=== PATIENT | male | born 1995 | race African-American/Black ===

== ENCOUNTER 2017-01-14 17:42 | Emergency (ER) | payer SELFPAY ==
[2017-01-14 17:52] VITALS: BP 142/90; PULSE 85; RESP 17; TEMP 98.8; O2SAT 95
[2017-01-14] MEDS ORDERED: DEXAMETHASONE 4 MG TAB PO ONE (18:16)
--- NOTE | 2017-01-14 18:17 | EDPHY ---
H & P Stated Complaint: st Time Seen by Provider: 01/14/17 18:09 HPI/ROS: CHIEF COMPLAINT: Sore throat HISTORY OF PRESENT ILLNESS: This patient is a healthy 21 y/o male complaining of sore throat onset yesterday around noon. He has noted a swollen left tonsil as well. This morning , he woke with increased throat pain, and possible white exudates on his tonsil. He has tried home remedies including salt water gargle and tea with no relief. He denies fever, runny nose, congestion, cough, or other associated symptoms. REVIEW OF SYSTEMS: A 10 point review of systems was performed and is negative with the exception of the elements mentioned in the history of present illness. - Personal History Current Tetanus/Diphtheria Vaccine: Yes - Medical/Surgical History PMH: 1. Asthma Hx Asthma: Yes Hx Chronic Respiratory Disease: No Hx Diabetes: No Hx Cardiac Disease: No Hx Renal Disease: No Hx Cirrhosis: No Hx Alcoholism: No Hx HIV/AIDS: No Hx Splenectomy or Spleen Trauma: No Other PMH: asthma/ r femur fx - Social History Smoking Status: Current every day smoker Additional Social History: Works as a cook. Current daily tobacco use. Lives in [place]. - Physical Exam Exam: General Appearance: Alert, nontoxic-appearing Eyes: Pupils equal and round, no conjunctival injection ENT, Mouth: Pharyngeal erythema. Mucous membranes moist Neck: Bilateral anterior and posterior lymphadenopathy Respiratory: Lungs are clear to auscultation Cardiovascular: Regular rate and rhythm Neurological: A&O, nonfocal, normal gait Skin: Warm and dry Psychiatric: Mood and affect normal Constitutional: Initial Vital Signs Temperature (C) 37.1 C 01/14/17 17:50 Heart Rate 85 01/14/17 17:50 Respiratory Rate 17 01/14/17 17:50 Blood Pressure 142/90 H 01/14/17 17:50 O2 Sat (%) 95 01/14/17 17:50 O2 Delivery Mode Room Air Allergies/Adverse Reactions: benzonatate [From Tessalon Perles] Allergy (Verified 01/14/17 17:50) quinine sulfate [From Qualaquin] Allergy (Verified 01/14/17 17:50) Home Medications: Medication Instructions Recorded NK [No Known Home Meds] 04/03/15 Medical Decision Making ED Course/Re-evaluation: 21 y/o male presents with two day history of sore throat. Exam reveals pharyngeal erythema as well as bilateral anterior and posterior lymphadenopathy. Plan for rapid strep swab and group A strep DNA test. Administered 6mg PO dexamethasone for symptom relief. 18:28 Rapid strep screen is negative. Plan to discharge home in good condition. Follow up and return precautions discussed. The patient requested a PCP referral and work note as well, which I have provided. The patient is comfortable with this plan. - Data Points Laboratory Results: 01/14/17 Unknown Group A Strep DNA NEGATIVE (NEGATIVE) Medications Given: Discontinued Medications Dexamethasone (Decadron) 6 mg PO EDNOW ONE Stop: 01/14/17 18:17 Last Admin: 01/14/17 18:27 Dose: 6 mg Departure - Departure Disposition: Home, Routine, Self-Care Clinical Impression: Acute pharyngitis Qualifiers: Pharyngitis/tonsillitis etiology: other specified organisms Qualified Code(s): J02.8 - Acute pharyngitis due to other specified organisms Condition: Good Instructions: Pharyngitis (ED), Viral Syndrome (ED) Additional Instructions: 1. Follow up with a primary care provider for continued evaluation. We have referred you to our primary care physician transcriptionist. 2. Take Tylenol or ibuprofen as directed below as needed for pain relief or if you develop fever. As we discussed, the steroid we administered in the emergency department should help to relieve your symptoms as well, but this may take some time to take effect. 3. Return to the emergency department for high fever, vomiting, diarrhea, difficulty breathing, or other worsening of condition. 4. Your rapid strep test was negative. We will call with results of the full culture if there are any changes. Adult Pain & Fever Control: We recommend Acetaminophen (Tylenol) and Ibuprofen (Motrin,Advil) for pain and fever control. When fever is high or pain severe, both drugs can be used at the same time, but at different intervals. Please note the time differences. Your dose is: Acetaminophen 650mg every 4 to 6 hours Ibuprofen 600mg every 6-8 hours with food Note: do not take Acetaminophen with Hydrocodone (Vicodin, Lortab) or Oxycodone (Percocet). These medications also contain Acetaminophen. No more than 3000mg of Acetaminophen should be taken in 24 hours (for an adult). Referrals: Rosario Li MD [Medical Doctor] - As per Instructions Stand Alone Forms: Work Excuse Report Scribed for: Karen Duong Report Scribed by: Pauline Ho Date of Report: 01/14/17 Time of Report: 18:17 Physician Review and Approval Statement: 01/14/17 18:17 Portions of this note were transcribed by a director global medical affairs. I personally performed a history, physical exam, medical decision making, and confirmed accuracy of information the transcribed note.
== END 2017-01-14 18:29 | disposition home or self-care (01) ==
DX: J02.9 Acute pharyngitis, unspecified (principal); J45.909 Unspecified asthma, uncomplicated; F17.200 Nicotine dependence, unspecified, uncomplicated

== ENCOUNTER 2017-09-08 02:47 | Emergency (ER) | payer SELFPAY ==
[2017-09-08] MEDS ORDERED: MIDAZOLAM 10 MG/2 ML VIAL ONE (03:49)
[2017-09-08] MEDS ORDERED: MIDAZOLAM 10 MG/2 ML VIAL NASAL ONE (03:49)
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
[2017-09-08 04:04] VITALS: BP 139/70
== END 2017-09-08 04:15 ==
LOC: EDUNIT#
DX: S00.31XA Abrasion of nose, initial encounter (principal); S40.812A Abrasion of left upper arm, initial encounter; S40.811A Abrasion of right upper arm, initial encounter; S20.91XA Abrasion of unspecified parts of thorax, initial encounter; F16.90 Hallucinogen use, unspecified, uncomplicated; R00.0 Tachycardia, unspecified; F10.121 Alcohol abuse with intoxication delirium; J45.909 Unspecified asthma, uncomplicated; F17.200 Nicotine dependence, unspecified, uncomplicated; Y04.8XXA Assault by other bodily force, initial encounter; Y99.8 Other external cause status; Y93.89 Activity, other specified
CPT/HCPCS: J2250

== ENCOUNTER 2017-10-22 04:06 | Emergency (ER) | payer MEDICAID ==
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
[2017-10-22] MEDS ORDERED: CEPHALEXIN 500 MG CAP PO ONE (04:16)
[2017-10-22] MEDS ORDERED: CEPHALEXIN 500MG PREPACK#4 BTL TAKEHOME ONE (04:16)
[2017-10-22 05:30] VITALS: BP 132/83
== END 2017-10-22 05:50 | disposition home or self-care (01) ==
DX: S61.411A Laceration without foreign body of right hand, initial encounter (principal); S41.111A Laceration without foreign body of right upper arm, initial encounter; J45.909 Unspecified asthma, uncomplicated; F17.200 Nicotine dependence, unspecified, uncomplicated; W01.0XXA Fall on same level from slipping, tripping and stumbling without subsequent striking against object, initial encounter; Y92.89 Other specified places as the place of occurrence of the external cause

== ENCOUNTER 2017-10-23 15:13 | Emergency (ER) | payer SELFPAY ==
[2017-10-23 15:39] VITALS: BP 154/71
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
== END 2017-10-23 16:20 | disposition home or self-care (01) ==
DX: S61.411D Laceration without foreign body of right hand, subsequent encounter (principal); F17.200 Nicotine dependence, unspecified, uncomplicated; S41.111D Laceration without foreign body of right upper arm, subsequent encounter; W26.8XXD Contact with other sharp object(s), not elsewhere classified, subsequent encounter

== ENCOUNTER 2018-04-16 01:53 | Inpatient (IN) | payer OTHER ==
[2018-04-16] MEDS ORDERED: NS 1,000 ML IV ONE ×2 (01:59→04:06)
--- NOTE | 2018-04-16 02:03 | EDPHY ---
H & P Time Seen by Provider: 04/16/18 02:00 HPI/ROS: HPI CHIEF COMPLAINT: Alcohol intoxication, ?fall off balcony HISTORY OF PRESENT ILLNESS: 22-year-old male presents emergency room by EMS, initially combative and agitated requiring police escort, presents to the emergency room after he drank large amount of alcohol tonight, also did cocaine , and possibly fell off a balcony. There is no witnesses. It is reported by EMS that he may have fallen 5-10 feet off a balcony. He arrives to the emergency room highly intoxicated with alcohol in a cervical collar. He is complaining of lower thoracic back pain. Denies chest pain or shortness of breath, denies abdominal pain. Moves all his extremities appropriately. He remains in a cervical collar. His head to toe trauma exam reveals mild tender palpation lower thoracic T-spine , otherwise negative, however Intoxicated. Past Medical History: Denies medical history Past Surgical History: Denies surgical history Social History: Alcohol this evening. Cocaine this evening. Family History: Noncontributory ROS REVIEW OF SYSTEMS: Limited due to alcohol intoxication. Exam Constitutional nontoxic, intoxicated, alcohol, triage nursing summary reviewed , vital signs reviewed, awake/alert. Eyes normal conjunctivae and sclera, EOMI, PERRLA. HENT head and neck in cervical collar rigid, intoxicated, I do not visualize any acute trauma externally moist mucus membranes, no epistaxis, neck supple/ no meningismus, no raccoon eyes. Respiratory clear to auscultation bilaterally, normal breath sounds, no respiratory distress, no wheezing. Cardiovascular rate normal, regular rhythm, no murmur, no edema, distal pulses normal. Gastrointestinal soft, non-tender, no rebound, no guarding, normal bowel sounds, no distension, no pulsatile mass. Genitourinary no CVA tenderness. Musculoskeletal. Back exam: Mild tender palpation mid thoracic midline, no step-offs or crepitus, no external signs of trauma on exam. , full range of motion, no calf swelling, no tenderness of extremities, no meningismus, good pulses, neurovascularly intact. Skin pink, warm, & dry, no rash, skin atraumatic. Neurologic slurring his speech, intoxicated, smells of alcohol, awake, alert and oriented x 3, AAOx3, moves all 4 extremities equally, motor intact, sensory intact, CN II-XII intact, truncal ataxia on exam. Differential Diagnosis: Includes but is not limited to in a particular order acute alcohol intoxication, cocaine abuse, fall from an elevated height, compression fracture, intracranial bleed, cervical spine injury Medical Decision Making: Patient to remain in a cervical collar, is highly intoxicated with alcohol EMS reports that he may have fallen body 10 ft complains of back pain. He arrives to emergency room limited history due to acute intoxication Plan for patient CT scan head without contrast and CT cervical spine without contrast for trauma CT thoracic spine without contrast for trauma. Reason for CT scans acute alcohol intoxication, fall. Complaining of midline back pain. Re-evaluation: Serum alcohol level 288. 2:[address] scan head without contrast negative for acute bleed CT cervical spine without contrast negative for acute fracture CT scan thoracic spine and lumbar spine without contrast for trauma this shows an L1 fracture it goes to the anterior and posterior column. Additionally T12 spinous process fracture The CT reports were called to me by Dr. Monroe. Plan for patient will consult Neurosurgery for his L1 fracture. 0329: Dr. Rosario with neurosurgery consulted. Will review his CT studies. Most likely plan for getting an MRI earlier this morning. At this time patient is too intoxicated agitated combative to obtain an MRI. Will need to wait till he is more sober. Patient remains in a cervical collar due to acute alcohol intoxication. And however CT cervical spine was negative for acute traumatic injury. Patient is moving all his extremities legs and arms appropriately. Discussed with Neurosurgery Dr. Rosario. He would like the patient admitted. Plan for MRI this morning. At this time 3:42 a.m. Patient is too intoxicated with alcohol and cocaine to get an MRI. This will need to be done this morning for further evaluation of his fracture Plan to admit to the trauma service. Admit for further evaluation of this back fracture Recommend bed rest. Will consult Trauma surgery for admission. 0350AM: Patient to be admitted to Trauma Surgery Dr. Sinclair consulted. Agrees to admit. Plan for MRI this moring when more sober Patient at this time to agitated/intoxicated with ETOH/Cocaine to get MRI. Patient bedrest. Admit to SDU. At time of admission, moves everything appropriately. However Intoxicated heavily with alcohol/cocaine. CT scan abdomen pelvis with IV contrast completed due the patient complaining of some abdominal pain. Additionally L1 fracture. CT scan abdomen pelvis with IV contrast does not show acute traumatic injury or inflammatory process seen. Called to me by Dr. Monroe. Critical Care: Total Critical Care Time Spent Managing this Patient: 85 Minutes. This time was spent Exclusively with this patient. This Care was exclusive of procedures. The Organ System/life at risk was lumbar spine fracture, alcohol intoxication, cocaine abuse, poly trauma This Patient was in Critical Condition because lumbar spine fracture. Source: Patient, EMS Constitutional: Initial Vital Signs Temperature (C) 36.6 C 04/16/18 02:07 Heart Rate 122 H 04/16/18 02:07 Respiratory Rate 18 04/16/18 02:07 Blood Pressure 125/98 H 04/16/18 02:07 O2 Sat (%) 93 04/16/18 02:07 O2 Delivery Mode Room Air Allergies/Adverse Reactions: No Known Allergies Allergy (Unverified 04/16/18 02:09) Home Medications: Medication Instructions Recorded NK [No Known Home Meds] 04/16/18 Medical Decision Making - Diagnostics Imaging Results: Imaging Impressions Thoracic Spine CT 04/16/18 01:59 Impression: 1. Transverse fracture through L1 through the anterior and posterior cortex and then through the pedicles and facets with mild diastasis posteriorly and moderate height loss of the anterior vertebral body. Fracture through the inferior aspect of the spinous process of T12. 2. Transitional anatomy of the spine with 13 rib-bearing vertebral bodies with hypoplastic ribs of this last rib-bearing vertebral body. This will be subsequently labeled as L1, as there are then following four lumbar-type vertebral bodies and partial lumbarization of S1. Results called and discussed with Dr. Beto Rodas on April 16, 2018 at 0330 hours. Final interpretation concurs with initial preliminary saxophone player radiologist impression. Lumbar Spine CT 04/16/18 02:50 Impression: 1. Transverse fracture through L1 through the anterior and posterior cortex and then through the pedicles and facets with mild diastasis posteriorly and moderate height loss of the anterior vertebral body. Fracture through the inferior aspect of the spinous process of T12. 2. Transitional anatomy of the spine with 13 rib-bearing vertebral bodies with hypoplastic ribs of this last rib-bearing vertebral body. This will be subsequently labeled as L1, as there are then following four lumbar-type vertebral bodies and partial lumbarization of S1. Results called and discussed with Dr. Beto Rodas on April 16, 2018 at 0330 hours. Final interpretation concurs with initial preliminary saxophone player radiologist impression. - Data Points Laboratory Results: Laboratory Results 04/16/18 02:11 04/16/18 02:11 Medications Given: Lactated Ringer's (Lr) 1,000 mls @ 125 mls/hr IV CONT PEGGY Stop: 10/13/18 04:59 Last Admin: 04/16/18 13:18 Dose: 1,000 mls Thiamine HCl 500 mg/ Sodium (Chloride) 105 mls @ 210 mls/hr IV DAILY PEGGY Stop: 04/18/18 09:29 Last Admin: 04/16/18 13:45 Dose: 105 mls Morphine Sulfate (Morphine) 1 - 2 mg IVP Q1HR PRN PRN Reason: Pain, Severe Unable to Take PO Stop: 04/26/18 04:59 Last Admin: 04/17/18 00:50 Dose: 2 mg Multivitamins (Tab-A-Paula) 1 each PO DAILY PEGGY Stop: 10/13/18 13:14 Last Admin: 04/16/18 13:44 Dose: 1 each Oxycodone/Acetaminophen (Percocet 5/325) 1 - 2 tab PO Q4HRS PRN PRN Reason: Pain, Severe Able to Take PO Stop: 04/26/18 13:15 Last Admin: 04/17/18 01:52 Dose: 1 tab Senna/Docusate Sodium (Senokot-S) 1 - 2 tab PO BID PEGGY PRN Reason: Protocol Stop: 10/13/18 20:59 Last Admin: 04/16/18 20:41 Dose: 1 tab Discontinued Medications Sodium Chloride (Ns) 1,000 mls @ 0 mls/hr IV ONCE ONE PRN Reason: Wide Open Stop: 04/16/18 02:00 Last Admin: 04/16/18 02:11 Dose: 1,000 mls Sodium Chloride (Ns) 1,000 mls @ 0 mls/hr IV ONCE ONE PRN Reason: Wide Open Stop: 04/16/18 04:07 Last Admin: 04/16/18 04:12 Dose: 1,000 mls Influenza Virus Vaccine Quadrival (Flulaval Quad [id number] (6mo+)) 0.5 ml IM .ONCE ONE Stop: 04/16/18 13:11 Last Admin: 04/16/18 13:19 Dose: 0.5 ml Departure - Departure Disposition: [facility] Inpatient Acute Clinical Impression: Lumbar back pain, Cocaine abuse Alcoholic intoxication Qualifiers: Complication of substance-induced condition: uncomplicated Qualified Code(s): F10.920 - Alcohol use, unspecified with intoxication, uncomplicated L1 vertebral fracture Qualifiers: Encounter type: initial encounter Fracture type: closed Fracture morphology: burst- unstable Qualified Code(s): S32.012A - Unstable burst fracture of first lumbar vertebra, initial encounter for closed fracture Fall Qualifiers: Encounter type: initial encounter Qualified Code(s): W19.XXXA - Unspecified fall, initial encounter Condition: Good
[2018-04-16 02:25] LABS: PLATELET COUNT 318 10^3/uL (150-400)
[2018-04-16] MEDS ORDERED: IOPAMIDOL (ISOVUE-300) 100 ML BTL ONE (04:22)
[2018-04-16] MEDS ORDERED: NALOXONE HCL 0.4 MG/ML INJ IVP PRN (04:55)
[2018-04-16] MEDS ORDERED: ONDANSETRON DISINTEGRATING 4 MG TAB PO PRN (05:00)
[2018-04-16] MEDS: LR 1,000 ML IV SCH ×2 (05:18→13:18)
--- NOTE | 2018-04-16 05:41 | PDGENHP ---
History and Physical - Chief Complaint Back pain - History of Present Illness This is a 22-year-old gentleman who was intoxicated with alcohol and cocaine and had an unwitnessed jump or fall from a 5-10 foot balcony. He presents with back pain accompanied by the police. He is moving all extremities appropriately. Although intoxicated he appropriately responds to commands. He is able to give a history he does admit that he blacked out at the time of the injury. He has had no incontinence of urine or stool. He has not vomited. His GCS is 14-15 History Information - Allergies/Home Medication List Allergies/Adverse Reactions: No Known Allergies Allergy (Unverified 04/16/18 02:09) Home Medications: NK [No Known Home Meds] 04/16/18 [Last Taken Unknown] I have personally reviewed and updated: family history, medical history, social history, surgical history - Past Medical History no pertinent PMH - Surgical History Additional surgical history: Right femur ORIF at 6 years old and 11 years old with implant at 11 years old - Family History Positive for: non-pertinent - Social History Smoking Status: Current every day smoker Alcohol Use: Heavy Drug Use: Cocaine Review of Systems Review of Systems: ROS: 10pt was reviewed & negative except for what was stated in HPI & below Muscolosketal: Reports: back pain Physical Exam Physical Exam: Alert and oriented to person place and time. Anicteric sclera, pupils 4 mm reactive. Extraocular motions intact No hemotympanum Nares clear Dentition intact. No oropharyngeal lesions Trachea midline 2+ carotid pulses Lungs clear bilaterally heart regular rate and rhythm Abdomen soft nontender nondistended no hepatosplenomegaly no masses No long bone abnormalities clavicles intact chest and pelvis stable to compression. Low mid back pain no ecchymosis tender centrally at approximately L1 consistent with x-ray findings Neurologically intact good muscle strength greenhouse grower strength bilateral upper extremities 5+ over 5+ muscle strength bilateral lower extremities symmetric sensation intact Skin normal turgor and tone Temp Pulse Resp BP Pulse Ox 36.6 C 116 H 18 119/59 L 97 04/16/18 02:07 04/16/18 04:55 04/16/18 04:55 04/16/18 04:55 04/16/18 04:55 Lab Data & Imaging Review 04/16/18 02:11 04/16/18 02:11 WBC 9.69 10^3/uL (3.80-9.50) H 04/16/18 02:11 RBC 5.72 10^6/uL (4.40-6.38) 04/16/18 02:11 Hgb 15.8 g/dL (13.7-17.5) 04/16/18 02:11 Hct 48.2 % (40.0-51.0) 04/16/18 02:11 MCV 84.3 fL (81.5-99.8) 04/16/18 02:11 MCH 27.6 pg (27.9-34.1) L 04/16/18 02:11 MCHC 32.8 g/dL (32.4-36.7) 04/16/18 02:11 RDW 13.3 % (11.5-15.2) 04/16/18 02:11 Plt Count 318 10^3/uL (150-400) 04/16/18 02:11 MPV 8.7 fL (8.7-11.7) 04/16/18 02:11 Neut % (Auto) 78.1 % (39.3-74.2) H 04/16/18 02:11 Lymph % (Auto) 16.4 % (15.0-45.0) 04/16/18 02:11 [place] % (Auto) 3.7 % (4.5-13.0) L 04/16/18 02:11 Eos % (Auto) 0.1 % (0.6-7.6) L 04/16/18 02:11 Baso % (Auto) 0.5 % (0.3-1.7) 04/16/18 02:11 Nucleat RBC Rel Count 0.0 % (0.0-0.2) 04/16/18 02:11 Absolute Neuts (auto) 7.56 10^3/uL (1.70-6.50) H 04/16/18 02:11 Absolute Lymphs (auto) 1.59 10^3/uL (1.00-3.00) 04/16/18 02:11 Absolute Monos (auto) 0.36 10^3/uL (0.30-0.80) 04/16/18 02:11 Absolute Eos (auto) 0.01 10^3/uL (0.03-0.40) L 04/16/18 02:11 Absolute Basos (auto) 0.05 10^3/uL (0.02-0.10) 04/16/18 02:11 Absolute Nucleated RBC 0.00 10^3/uL (0-0.01) 04/16/18 02:11 Immature Gran % 1.2 % (0.0-1.1) H 04/16/18 02:11 Immature Gran # 0.12 10^3/uL (0.00-0.10) H 04/16/18 02:11 Sodium 146 mEq/L (135-145) H 04/16/18 02:11 Potassium 4.4 mEq/L (3.5-5.2) 04/16/18 02:11 Chloride 111 mEq/L (97-110) H 04/16/18 02:11 Carbon Dioxide 23 mEq/l (22-31) 04/16/18 02:11 Anion Gap 12 mEq/L (6-14) 04/16/18 02:11 BUN 11 mg/dL (7-23) 04/16/18 02:11 Creatinine 0.9 mg/dL (0.7-1.3) 04/16/18 02:11 Estimated GFR > 60 04/16/18 02:11 Glucose 123 mg/dL (70-100) H 04/16/18 02:11 Calcium 9.7 mg/dL (8.5-10.4) 04/16/18 02:11 Total Bilirubin 0.6 mg/dL (0.1-1.4) 04/16/18 02:11 Conjugated Bilirubin 0.3 mg/dL (0.0-0.5) 04/16/18 02:11 Unconjugated Bilirubin 0.3 mg/dL (0.0-1.1) 04/16/18 02:11 AST 29 IU/L (17-59) 04/16/18 02:11 ALT 25 IU/L (21-72) 04/16/18 02:11 Alkaline Phosphatase 76 IU/L (38-126) 04/16/18 02:11 Total Protein 8.6 g/dL (6.3-8.2) H 04/16/18 02:11 Albumin 5.3 g/dL (3.5-5.0) H 04/16/18 02:11 Lipase 57 IU/L (23-300) 04/16/18 02:11 Urine Opiates Screen NEGATIVE (NEGATIVE) 04/16/18 03:25 Urine Barbiturates NEGATIVE (NEGATIVE) 04/16/18 03:25 Ur Phencyclidine Scrn NEGATIVE (NEGATIVE) 04/16/18 03:25 Ur Amphetamine Screen NEGATIVE (NEGATIVE) 04/16/18 03:25 U Benzodiazepines Scrn NEGATIVE (NEGATIVE) 04/16/18 03:25 Urine Cocaine Screen NON-NEGATIVE (NEGATIVE) H 04/16/18 03:25 U Marijuana (THC) Screen NEGATIVE (NEGATIVE) 04/16/18 03:25 Ethyl Alcohol 288 mg/dL (0-10) H 04/16/18 02:11 Imaging Review: Personally reviewed head CT, C-spine, thoracic spine, lumbar spine reconstructed views as well as abdomen and pelvis CT scan. Significant finding L1 3 column fractures nondisplaced no cord compression on this view. Twelfth thoracic transverse process fracture White reads to Dr. Rodas are consistent with my findings Assessment & Plan Assessment: Alcoholic intoxication (Acute) Cocaine abuse (Acute) Fall (Acute) L1 vertebral fracture (Acute) Lumbar back pain (Acute) Plan: The patient will be admitted as a trauma consultation/admission Neurosurgery has been called and the patient will need an MRI to appropriately evaluate his back. This will be performed with the patient is less intoxicated. No focal neurologic deficits are noted. Cocaine and alcohol use will be addressed from a social standpoint. PT OT to be held until after definitive bracing or surgical repair of his L1 fracture. Back precautions until then. DVT prophylaxis with SCDs until after possible surgery. NPO. Neurologic checks q.4 hours. IV fluids 125 cc an hour Morphine intermittently for pain if needed
--- NOTE | 2018-04-16 09:37 | GCON ---
CONSULTATION/HISTORY AND PHYSICAL DATE OF CONSULTATION: 04/16/2018 Patient is seen in room 355 by neurosurgical service at 0715 on 04/16/2017. CHIEF COMPLAINT: 1. Alcohol intoxication. 2. Fall off a balcony. HISTORY OF PRESENT ILLNESS: The patient is a 22-year-old otherwise healthy male who presented to the emergency department via EMS. Initially, he was combative and agitated, requiring a police escort. He presented to the emergency department after a reported large intake of alcohol, also intake of co rina. There was a possibility that he fell off a balcony. There were no witnesses to this. Per EM S, he possibly fell approximately 5-10 feet off a balcony. He came into the emergency department hig hly intoxicated in a cervical collar. He was complaining of lower back pain as his main complaint. Currently, he describes that as well. He denies currently any neck pain. No headache. No visual ch anges. No shortness of breath. No chest pain. No abdominal complaints. He moves all his extremiti es appropriately to his arms and legs. He removed his cervical collar prior to my arrival. His main complaint at this time appears to be lower back pain without any radicular symptoms. He denies any numbness, tingling, or weakness to the lower extremities. No fevers or chills. The patient also denies any saddle numbness. No groin numbness. No change in voiding. He is able t o pee appropriately. PAST MEDICAL HISTORY: None. PAST SURGICAL HISTORY: ORIF of femur x2. MEDICATIONS: None. ALLERGIES: No known drug allergies. SOCIAL HISTORY: Patient is not . He has 1 child. He does smoke. He does use alcohol. He h as recent cocaine intake. 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 IMMUNIZATIONS: Reported up to date. TRAVEL: No recent travel. REVIEW OF SYSTEMS: Complete 10-point review of systems was completed and negative, otherwise noted a katia. PHYSICAL EXAM: GENERAL: This is an awake, alert, oriented male in no acute distress. VITAL SIGNS: Most recent vital signs, blood pressure 147/62, MAP of 90, heart rate 108, respiratory rate 18, 92% on room air, temperature 36.8. HEENT: Head is normocephalic, atraumatic. Pupils are equal, round, reactive to light. EOMs intact. Full visual holder by confrontation. Ears are patent. Nose is pat ent. NECK: Soft and supple. No midline tenderness. Full range of motion in flexion, extension, lat eral bending, and rotation. The patient removed collar prior to my arrival. RESPIRATORY/CARDIAC: D eferred. ABDOMEN: Soft, nontender. No peritoneal signs. and RECTAL: Deferred. NEURO: Patient is awake, alert, oriented to name, place, location, date, time, and situation. Memory is intact to immediate, past, and current events. Speech: No aphasia, dysarthria, dysphonia. Cranial nerves 2-1 2 grossly intact. Motor: Patient has 5/5 strength in all muscle groups of the bilateral upper and l ower extremities to include deltoids, biceps, triceps, brachioradialis, wrist flexion/extensors, alignment specialist intrinsic fingers, iliopsoas, quadriceps, hamstring, plantar flexion, dorsiflexion, EHL testing. Se nsation is grossly intact to light touch throughout all dermatome distributions, upper and lower extr emities, negative straight leg raise. Negative ILAN test, reflexes of biceps, triceps, brachioradia lis, knee jerk and ankle jerk 2+/4. Toes are downgoing bilaterally. Hook's negative. Babinski n egative. No evidence of clonus. SPINE: Patient does have pain on palpation to the lower thoracic, upper lumbar spine that hurts with mild fist percussion. Otherwise, no cervical or upper thoracic pa in. MEDICAL DECISION-MAKING/DIAGNOSTIC STUDIES: Laboratory tests obtained 04/16/2018, show a white count of 9.69, with H and H of 15.8 and 48.2, with a platelet count of 318. Chemistry on 04/16/2018, sodi um 146, potassium 4.4, chloride 111, CO2 23, BUN 11, creatinine 0.9, and a glucose of 123. Urine eitan g screen was positive for cocaine, and alcohol level was 288. CT scan of the head without contrast was negative for acute bleed. CT scan of the cervical spine wit hout contrast was negative for acute fracture. The patient had a CT scan of the thoracic and lumbar spine without contrast for trauma, which shows an L1 fracture consistent with a Chance type fracture that goes to the anterior and posterior columns. There is also a T12 spinous process fracture. IMPRESSION: 1. Alcohol intoxication. 2. Cocaine ingestion. 3. Fall reported 5-10 feet from a balcony. 4. T12 spinous process fracture. 5. Chance fracture at L1, likely require surgical intervention. PLAN/DISCUSSION: The patient is a 22-year-old male who is otherwise healthy. He had an ORIF of his femur, but really has no other significant medical history. He was intoxicated and did use some coca ine last night, fell off a balcony of approximately 5-10 feet. Currently, patient denies any headach e or neck pain. The patient removed his collar and refused to wear his collar prior to my arrival. The patient was seen both by myself and Dr. Rosario, as noted above. The patient has an unstable fract ure of L1. We have a pending MRI of the lumbar spine today. Review the MRI and likely will need danny gical intervention and stabilization for this. The patient is still intoxicated and will need to wea r this off so that we can properly review the images that need to be obtained with him and consent hi m for surgery likely tomorrow. All questions and concerns were answered. Will go ahead and let him eat today, but will likely need surgery tomorrow or the next day depending on what the MRI reveals. /[id number]/MODL
--- NOTE | 2018-04-16 09:45 | PDMN ---
Medical Necessity Medical necessity: MCG: GRG Musculoskeletal disease wedge compression fx of 1st lumbar vertebra, initial encounter for closed fx., 2 days: pt with jump/ fall from 5-10 feet with new back pain. pt intoxicated, pt will be NPO with neuro consult pend. MRI pend. - anticipate > 2 MN ongoing med nec care- further monitoring eval and tx needed.
--- NOTE | 2018-04-16 10:29 | ASMTCMCOM ---
CM Note CM Note Notes: Pt has unstable L1 fx after unwitnessed fall (off balcony?), pt had alcohol and cocaine. Neurosurgery consulting, MRI pending and pt likely needs surgery possibly tomorrow. OT/PT/MANAGER FAMILY/inpatient rehab ordered. CM to discuss drug/alcohol resources when appropriate. Pt listed currently as self pay. CM to follow for d/c needs. Date Signed: 04/16/2018 10:29 AM Electronically Signed By:MOOSE Worley
[2018-04-16] MEDS ORDERED: LORazepam 2 MG/ML INJ IVP PRN (13:14)
[2018-04-16] MEDS ORDERED: FLUMAZENIL 0.5 MG/5 ML MDV IVP PRN (13:14)
[2018-04-16] MEDS: MULTIVITAMINS 1 EACH TAB PO SCH (13:44)
[2018-04-16] MEDS: OXYCODONE/APAP 5/325 TAB PO PRN ×3 (13:44→21:25)
[2018-04-16] MEDS: THIAMINE HCL 500 MG in NS 100 ML IV SCH (13:45)
--- NOTE | 2018-04-16 16:06 | SOAPPROG ---
SOAP Progress Note Assessment/Plan: Assessment: MRI SHOWS UNSTABLE L1 FX WITH NO PROTRUSION INTO CANAL BUT SMALL EPIDURAL BLOOD Plan:PER NS 04/16/18 16:04 Objective: Vital Signs Temp Pulse Resp BP Pulse Ox 36.9 C 89 16 123/59 H 93 04/16/18 15:21 04/16/18 15:21 04/16/18 15:21 04/16/18 15:21 04/16/18 15:21 04/15/18 04/16/18 04/17/18 05:59 05:59 05:59 Intake Total 2100 Output Total 2500 Balance -400 ICD10 Worksheet Patient Problems: Problems Problem Status Onset Alcoholic intoxication Acute Cocaine abuse Acute Fall Acute L1 vertebral fracture Acute Lumbar back pain Acute
--- NOTE | 2018-04-16 19:51 | TRAUMAPN ---
Trauma Progress Note - Problem/Surgery Performed (1) Closed T12 fracture Assessment/Plan: T12 spinous process fracture with disruption post longitudinal ligament Qualifiers: Encounter type: initial encounter (2) Fall Assessment/Plan: mechanism of injury. patient was intoxicated/is now sober and interacting appropriately Qualifiers: Encounter type: initial encounter Qualified Code(s): W19.XXXA - Unspecified fall, initial encounter (3) L1 vertebral fracture Assessment/Plan: MRI confirms unstable fracture L1 extending into both pedicles/small epidural hematoma no associated cord compression or injury management per Dr. Rosario/continue bedrest with spine precautions will hold VTE prophylaxis for now and continue SCD Qualifiers: Encounter type: initial encounter Fracture type: closed Fracture morphology: burst- unstable Qualified Code(s): S32.012A - Unstable burst fracture of first lumbar vertebra, initial encounter for closed fracture Assessment/Plan: hemodynamically stable with other injuries on tertiary survey/cervical spine cleared clinically Plan: operative stabilization per Neurosurgery/continue SCD/start VTE prophylaxis as soon as possible after surgery Objective: Vital Signs Temp Pulse Resp BP Pulse Ox 36.9 C 89 16 123/59 H 93 04/16/18 15:21 04/16/18 15:21 04/16/18 15:21 04/16/18 15:21 04/16/18 15:21 04/15/18 04/16/18 04/17/18 05:59 05:59 05:59 Intake Total 3450 Output Total 3050 Balance 400 - C-Spine Clearance Cervical Spine Cleared: Yes Provider who Cleared Cervical Spine: [facility] Time Cervical Spine was Cleared: 19:53 Physical Exam - Physical Exam General Appearance: WD/WN, alert, no apparent distress EENT: PERRL/EOMI Neck: non-tender, full range of motion, supple Respiratory: lungs clear, normal breath sounds, pain on movement Cardiac/Chest: regular rate, rhythm Peripheral Pulses: 4+: carotid (R), carotid (L), femoral (R), femoral (L), dorsalis-pedis (R), dorsalis-pedis (L) Abdomen: normal bowel sounds, non-tender, soft Male Genitalia: deferred Rectal: deferred Skin: warm/dry Lymphatic: no adenopathy Extremities: normal range of motion, non-tender Neuro/Psych: no motor/sensory deficits, alert, normal mood/affect, oriented x 3 , other (gait testing not performed) Time Spent w/Patient (minutes): 30
[2018-04-16] MEDS ORDERED: MAGNESIUM HYDROXIDE 30 ML UDCUP PO PRN (19:58)
[2018-04-16] MEDS ORDERED: BISACODYL 10 MG SUPP PR PRN (19:58)
[2018-04-16] MEDS ORDERED: LACTULOSE 20 GM/30 ML UDCUP PO PRN (19:58)
[2018-04-16] MEDS: SENNOSIDES/DOCUSATE SODIUM TAB PO SCH (20:41)
[2018-04-17] MEDS: OXYCODONE/APAP 5/325 TAB PO PRN ×4 (01:52→21:59)
[2018-04-17] MEDS: METHOCARBAMOL 750 MG TAB PO SCH ×4 (03:26→21:59)
--- NOTE | 2018-04-17 06:22 | NEUSURGPN ---
Assessment/Plan: Assessment: 22 yo male that was admitted after fall with hx of drug and alcohol use. Pt has a L1 chance type fracture with T12 SP fracture Plan: -L1 fracture/T12 SP fracture: MRI of the L spine shows unstable L1 fracture with disruption of the posterior longitudinal ligaments-plan for surgery and stabilization with Dr Rosario on Wednesday -pt is neuro stable -PT/OT on hold -bedrest at this time -will call OR for time to do surgery tomorrow -warning signs reviewed -call with any questions or concerns -NPO after midnight -order in for surgery Subjective: Awake and alert. NAD. Eating/drinking and voiding. No f/c/n/v/d. No mcnamara/neck/ chest/abd or gu complaints. Objective: AAO x 3, PERRLA/EOMI no droop CN 2-12 grossly intact +lt touch 5/5 BUE/BLE = no numbness or tingling Neuro Check Frequency: per routine Urinary Catheter in Place: No - Physician Discussed Patient with : [facility] Physical Exam - Vitals, I&O, Labs I and O 04/16/18 04/17/18 04/18/18 05:59 05:59 05:59 Intake Total 3950 Output Total 3050 Balance 900 Weight 72.575 kg Intake: Oral (ml) 500 IV Infused (ml) 3450 Lr 1,000 ml @ 125 mls/hr 1250 IV CONT PEGGY Rx#: [id number] Thiamine HCl 500 mg In Ns 100 100 ml @ 210 mls/hr IV DAILY PEGGY Rx#:[id number] Output: Urine (ml) 3050 Urinal 1450 Other: Intake Quantity Yes Sufficient Number of Voids 2 Urinal 1 Vital Signs Temp Pulse Resp BP Pulse Ox 37.0 C 68 16 137/81 H 96 04/17/18 04:30 04/17/18 04:30 04/17/18 04:30 04/17/18 04:30 04/17/18 04:30 ICD10 Worksheet Patient Problems: Problems Problem Status Onset Alcoholic intoxication Acute Closed T12 fracture Acute Cocaine abuse Acute Fall Acute L1 vertebral fracture Acute Lumbar back pain Acute
[2018-04-17] MEDS: SENNOSIDES/DOCUSATE SODIUM TAB PO SCH ×2 (08:23→21:59)
[2018-04-17] MEDS: MULTIVITAMINS 1 EACH TAB PO SCH (08:23)
[2018-04-17] MEDS: THIAMINE HCL 500 MG in NS 100 ML IV SCH (08:24)
[2018-04-17] MEDS ORDERED: NALOXONE HCL 0.4 MG/ML INJ IVP PRN (08:34)
[2018-04-17 08:38] LABS: INR 1.03 (0.83-1.16); PROTIME(PATIENT) 13.7 SEC (12.0-15.0)
[2018-04-17] MEDS: HYDROmorphONE/DILAUDID 6 MG/30 ML PCA IV PRN (09:15)
[2018-04-17] MEDS: LR 1,000 ML IV SCH (09:16)
--- NOTE | 2018-04-17 09:38 | SOAPPROG ---
SOAP Progress Note Assessment/Plan: Assessment: MRI SHOWS UNSTABLE L1 FX WITH NO PROTRUSION INTO CANAL BUT SMALL EPIDURAL BLOOD Plan:PER NS 04/16/18 16:04 04/17/18 09:36 72-YEAR-OLD MALE WITH UNSTABLE L1 COMPRESSION FRACTURE PENDING SURGICAL REPAIR IN THE A.M. PRESENTLY COMFORTABLE EXCEPT FOR BACK SPASMS AND PAIN HEENT NONICTERIC/CHEST CLEAR AND SYMMETRIC AND NONTENDER/COR REGULAR RHYTHM/ ABDOMEN SOFT AND NONTENDER WITHOUT MASSES AND WITH POSITIVE BOWEL SOUNDS EXTREMITIES FULL RANGE OF MOTION FULL PULSES NEURO EXAM SYMMETRIC STRENGTH AND MOTOR FUNCTION AND CRANIAL NERVES INTACT IMPRESSION: UNSTABLE SPINE FRACTURE/NO OTHER MAJOR FINDINGS/CONTINUE SPINAL PRECAUTIONS UNTIL SURGERY Objective: Vital Signs Temp Pulse Resp BP Pulse Ox 36.9 C 92 16 143/65 H 93 04/17/18 08:00 04/17/18 08:00 04/17/18 08:00 04/17/18 08:00 04/17/18 08:00 04/16/18 04/17/18 04/18/18 05:59 05:59 05:59 Intake Total 4190 Output Total 3050 Balance 1140 PT 13.7 SEC (12.0-15.0) 04/17/18 07:48 INR 1.03 (0.83-1.16) 04/17/18 07:48 ICD10 Worksheet Patient Problems: Problems Problem Status Onset Alcoholic intoxication Acute Closed T12 fracture Acute Cocaine abuse Acute Fall Acute L1 vertebral fracture Acute Lumbar back pain Acute
[2018-04-18] MEDS: OXYCODONE/APAP 5/325 TAB PO PRN ×3 (03:16→17:35)
[2018-04-18] MEDS ORDERED: ceFAZolin 2 GM/DEXTROSE 100 ML IV ONE (08:00)
[2018-04-18] MEDS: SENNOSIDES/DOCUSATE SODIUM TAB PO SCH ×2 (08:17→21:32)
[2018-04-18] MEDS: MULTIVITAMINS 1 EACH TAB PO SCH (08:20)
--- NOTE | 2018-04-18 08:50 | PDHPUP ---
History & Physical Update H&P update statement: This history and physical update is based on an assessment of the patient which was completed after admission or registration (within 24 hours), but prior to the surgery/procedure. H&P update: H&P reviewed & patient examined, no change in patient's condition since H&P completed H&P changes: Discussed risks, benfits and alternatives to T12-L2 percutaneous PSF for L1 fracture stabilization.
--- NOTE | 2018-04-18 09:16 | SOAPPROG ---
SOAP Progress Note Assessment/Plan: Assessment/Plan: 22 Y M EtOH, cocaine, presumed fall from 5-10 foot balcony. T12 spinous process fx, L1 Chance fx. To OR today c Dr. Rosario for L1 fracture. NPO. Chemical VTE ppx held. C spine cleared. Pain controlled. No new complaints. Seen with Dr. Moffett. Dispo: pending. S: pain controlled. no new complaints. O: alert, nad, flat in bed ncat ctab rrr abd soft, nt, +BS ext wwp, sensation intact. no edema. 04/18/18 09:15 Objective: Vital Signs Temp Pulse Resp BP Pulse Ox 36.8 C 82 14 126/81 H 91 L 04/18/18 08:00 04/18/18 08:00 04/18/18 08:00 04/18/18 08:00 04/18/18 08:00 04/17/18 04/18/18 04/19/18 05:59 05:59 05:59 Intake Total 4190 1600 Output Total 3050 Balance 1140 1600 PT 13.7 SEC (12.0-15.0) 04/17/18 07:48 INR 1.03 (0.83-1.16) 04/17/18 07:48 ICD10 Worksheet Patient Problems: Problems Problem Status Onset Alcoholic intoxication Acute Closed T12 fracture Acute Cocaine abuse Acute Fall Acute L1 vertebral fracture Acute Lumbar back pain Acute
[2018-04-18] MEDS: METHOCARBAMOL 750 MG TAB PO SCH ×3 (10:15→21:33)
[2018-04-18] MEDS: THIAMINE HCL 500 MG in NS 100 ML IV SCH (10:15)
--- NOTE | 2018-04-18 11:56 | ASMTCMCOM ---
CM Note CM Note Notes: Patient in OR today for neurosurgical repair of his L1 fracture. Mother has been at bedside. Per financial counseling update, he has [employer] insurance. For any behavioral health/susbstance abuse treatment options, we will need to see what [employer] covers. PT/OT/IPR consults pending, will eval post-operatively. CM will follow. Current CM Discharge plan: TBD Date Signed: 04/18/2018 11:55 AM Electronically Signed By:Lara Oden RN
[2018-04-18] MEDS ORDERED: CHLORHEXIDINE GLUC HIBICLENS 118 ML BTL TP ONE (12:18)
[2018-04-18] MEDS ORDERED: THROMBIN (BOVINE) 5,000 UNIT VIAL TP ONE ×2 (12:19)
[2018-04-18] MEDS ORDERED: BUPIVACAINE/EPI 0.25% 30 ML SDV ONE ×4 (12:19)
[2018-04-18] MEDS ORDERED: BACITRACIN 50,000 UNITS/10 ML SYR IRR ONE (12:19)
[2018-04-18] MEDS ORDERED: LR 1,000 ML IV ONE (12:54)
[2018-04-18] MEDS ORDERED: CEFAZOLIN 2 GM/DEXTROSE/100 ML BAG IV ONE (13:06)
[2018-04-18] MEDS ORDERED: MIDAZOLAM 2 MG/2 ML VIAL IVP ONE (13:13)
--- NOTE | 2018-04-18 13:13 | PDANEPAE ---
ANE History of Present Illness here for min invasive spinal fusion ANE Past Medical History - Cardiovascular History Hx Hypertension: No Hx Arrhythmias: No Hx Chest Pain: No Hx Coronary Artery / Peripheral Vascular Disease: No Hx CHF / Valvular Disease: No Hx Palpitations: No - Pulmonary History Hx COPD: No Hx Asthma/Reactive Airway Disease: No Hx Recent Upper Respiratory Infection: No Hx Oxygen in Use at Home: No Hx Sleep Apnea: No Sleep Apnea Screening Result - Last Documented: Negative - Neurologic History Hx Cerebrovascular Accident: No Hx Seizures: No Hx Dementia: No - Endocrine History Hx Diabetes: No - Renal History Hx Renal Disorders: No - Liver History Hx Hepatic Disorders: No - Chronic Pain History Chronic Pain: Yes ANE Review of Systems Review of systems is: negative Review of Systems: - Exercise capacity Exercise capacity: >=4 METS ANE Patient History - Allergies Allergies/Adverse Reactions: No Known Allergies Allergy (Unverified 04/16/18 02:09) - Home Medications Home medications: home medication list seen and reviewed Home Medications: NK [No Known Home Meds] 04/16/18 [Last Taken Unknown] - NPO status NPO Status: no food or drink >8 hours NPO Since - Liquids (Date): 04/18/18 NPO Since - Liquids (Time): 00:00 NPO Since - Solids (Date): 04/18/18 NPO Since - Solids (Time): 00:00 - Anes Hx Anes Hx: no prior problems - Smoking Hx Smoking Status: Current every day smoker - Alcohol Use Alcohol Use: Heavy ANE Labs/Vital Signs - Labs Result Diagrams: 04/16/18 02:11 04/16/18 02:11 - Vital Signs Vital Signs: reviewed preoperatively; see RN documention for details Blood Pressure: 137/73 Heart Rate: 73 Respiratory Rate: 16 O2 Sat (%): 93 Height: 180.34 cm Weight: 72.575 kg ANE Physical Exam - Airway Neck exam: FROM Mallampati Score: Class 1 - Pulmonary Pulmonary: no respiratory distress - Cardiovascular Cardiovascular: regular rate and rhythym - ASA Status ASA Status: II ANE Anesthesia Plan Anesthesia Plan: general endotracheal anesthesia
[2018-04-18] MEDS ORDERED: ONDANSETRON 4 MG/2 ML VIAL IVP PRN (13:17)
[2018-04-18] MEDS ORDERED: HYDROCODONE/APAP 5/325 TAB PO PRN (13:17)
[2018-04-18] MEDS ORDERED: NS 500 ML IV PRN (13:17)
[2018-04-18] MEDS ORDERED: oxyCODONE IR 5 MG TAB PO PRN (13:17)
[2018-04-18] MEDS ORDERED: NALOXONE HCL 0.4 MG/ML INJ IVP PRN (13:17)
[2018-04-18] MEDS ORDERED: LR 500 ML IV PRN (13:17)
[2018-04-18] MEDS ORDERED: ALBUTEROL 3 ML DEYVIAL IH PRN (13:17)
[2018-04-18] MEDS ORDERED: DEXAMETHASONE 4 MG/ML VIAL IVP PRN (13:17)
[2018-04-18] MEDS ORDERED: ACETAMINOPHEN 500 MG TAB PO PRN (13:17)
[2018-04-18] MEDS ORDERED: PROPOFOL/EMULSION 500 MG/50 ML BOTTLE IV ONE ×2 (13:23→14:35)
[2018-04-18] MEDS ORDERED: ROCURONIUM 50 MG/5 ML VIAL ONE (13:24)
[2018-04-18] MEDS ORDERED: fentaNYL 100 MCG/2 ML INJ ONE ×3 (13:30→15:53)
[2018-04-18] MEDS ORDERED: PROPOFOL 200 MG/20 ML VIAL ONE (13:52)
[2018-04-18] MEDS ORDERED: METHOCARBAMOL 1,000 MG in NS 50 ML IV ONE (15:55)
[2018-04-18] MEDS ORDERED: KETOROLAC 30 MG/1 ML SDV IVP PRN (15:55)
[2018-04-18] MEDS ORDERED: KETOROLAC 30 MG/1 ML SDV ONE (15:57)
[2018-04-18] MEDS: fentaNYL 100 MCG/2 ML INJ IVP PRN ×2 (15:58→16:08)
[2018-04-18] MEDS: HYDROmorphONE/DILAUDID 2 MG/ML INJ IVP PRN ×4 (16:15→16:58)
[2018-04-18] MEDS ORDERED: HYDROmorphONE/DILAUDID 2 MG/ML INJ ONE (16:15)
--- NOTE | 2018-04-18 16:34 | POSTOPPROG ---
Post Op Note Date of Operation: 04/18/18 Surgeon: Perez Rosario Visiting Teacher: Lashon BROWN Anesthesia: GET(General Endotracheal) Pre-op Diagnosis: L1 chance fracture Post-op Diagnosis: same Procedure: T12-L1 Percutaneous Fusion Inf/Abcess present in the surg proc area at time of surgery?: No Depth: Organ Space SOAP Progress Note Assessment/Plan: Assessment: Plan: 04/18/18 16:26 S: Patient in PACU. Stable with expected incisional pain. O: Awake, still becoming more alert,uncomfortable and in pain PERRL, EOMI WING X4 Following commands BLE 5/5= Sensation intact to lt touch Incisions c/d/i-dressed -steri strips A: 22 yo male sp T12-L2 perc screw placement for stabilization of L1 chance fracture P: -Admit to med/surg -Postop x-rays -Brace when up and out of bed- will put in order to have RN order brace. Ok for patient to get out of bed prior to brace arriving -Optimize pain management- Ok to have 4 doses of toradol to help with postop pain control -PT/OT -Patient seen by Dr. Rosario in PACU -Call with any changes Objective: Vital Signs Temp Pulse Resp BP Pulse Ox 36.8 C 73 15 150/99 H 99 04/18/18 11:59 04/18/18 13:17 04/18/18 16:07 04/18/18 16:07 04/18/18 16:07 04/17/18 04/18/18 04/19/18 05:59 05:59 05:59 Intake Total 4190 1600 Output Total 3050 Balance 1140 1600 PT 13.7 SEC (12.0-15.0) 04/17/18 07:48 INR 1.03 (0.83-1.16) 04/17/18 07:48
[2018-04-18] MEDS ORDERED: diphenhydrAMINE 25 MG CAP PO PRN (16:38)
[2018-04-18] MEDS: POLYETHYLENE GLYCOL 3350 17 GM PKT PO PRN (17:32)
[2018-04-18] MEDS: HYDROmorphONE/DILAUDID 6 MG/30 ML PCA IV PRN (18:04)
[2018-04-18] MEDS: oxyCODONE IR 5 MG TAB PO PRN (18:37)
--- NOTE | 2018-04-18 20:30 | GOP ---
DATE OF OPERATION: 04/18/2018 SURGEON: Perez Rosario MD NEUROSURGEON: Preez Rosario MD. SCREENING NURSE: CARTER Swenson. ANESTHESIA: General endotracheal. PREOPERATIVE DIAGNOSIS: L1 bony Chance fracture with bilateral facet fractures. POSTOPERATIVE DIAGNOSIS: L1 bony Chance fracture with bilateral facet fractures. PROCEDURE PERFORMED: 1. Open reduction, internal fixation of L1 fracture. 2. Placement of percutaneous pedicle screw fixation, T12 and L2. 3. Posterior spinal instrumentation T12 to L2. 4. Use of O-arm/Stealth stereotactic navigation for screw placement. 5. Intraoperative neurophysiologic monitoring, including somatosensory evoked potentials, motor evok ed potentials, electromyography. FINDINGS: Successful fixation T12 to L2. SPECIMENS: None. ESTIMATED BLOOD LOSS: 25 cc. INDICATIONS: The patient is a 22-year-old man who fell off a balcony 2 days ago. He presented with low back pain but was ambulatory at the time. He was found to have a bony flexion distraction fractu re consistent with a bony Chance fracture at L1. He had some splaying of the pedicles and facet join ts posteriorly. Therefore, we elected to treat him with internal fixation with the hopes of removing his hardware at a later date after the fracture heals. He was completely neurologically intact. DESCRIPTION OF PROCEDURE: After informed consent was obtained from the patient, the patient was brou ght to the operating room and a formal time-out was performed, identifying the patient by name, medic al record number, and date of . Preoperative antibiotics were given. The endotracheal tube was placed and general endotracheal anesthesia was smoothly induced. All appropriate leads were placed for intraoperative neurophysiologic monitoring. The patient was then turned into the prone position on the Jose Antonio table. All appropriate pressure points were padded and checked. The lumbar region wa s prepped and draped in a normal sterile fashion. A stab incision was made over the right iliac yash t, and the percutaneous navigation frame was placed into the iliac crest. The O-arm was then used to obtain a stereotactic CT scan showing the relevant anatomy from T10 down t o L3. At this point, the pedicle entry points and trajectories for screws at T12 and L2 were identif ied and marked. 10 cc of 0.25% Marcaine with epinephrine was infiltrated into each incision for hemo stasis. 1 cm incisions were then made using a 10 blade, and the sharp-tip awl was then used to make an entry point into each pedicle in the proper trajectory. The 5.5 mm tap was then used to tap each pedicle and this was done under navigation. At this point, Medtronic Solera screws were placed percu taneously at each level. At T12, 6.5 x 50 mm screws were placed bilaterally and at L2, 6.5 x 55 mm s crew was placed on the left and a 6.5 x 50 mm screw was placed on the right. A 2nd O-arm spin was ob tained showing all the screws in good placement. The neurophysiological monitoring remained stable. There was some EMG activity on at L1 which quieted; however, we had no good explanation for this giv en that the screws were in excellent placement on the CT with no breach or encroachment upon the fora men. At this point, 4.75 x 80 mm titanium rods were bent to the proper contour and then these were passed in the subfascial space into each screw head. The domeinca length was confirmed using x-ray to be sure th at the rods appropriately spanned the screw heads. The locking caps were then locked in place and ti ghtened to their final torque as recommended by the command and control. At this point, the reduction tower s were removed. Final AP and lateral x-rays were performed showing good placement of the hardware an d some reduction of the kyphosis. All the neurophysiologic monitoring was at baseline. At this poin t, each wound was copiously irrigated using bacitracin irrigation. More 0.25% Marcaine with epinephr ine was infiltrated into the skin, subcutaneous tissues for postoperative analgesia. The fascia was closed using a single [id number] 0 Vicryl suture and deep dermis was closed using interrupted 2- 0 Vicryl. The percutaneous navigation pin was removed. Steri-Strips were placed on all the wounds. The patient was then awakened in the operating room, was extubated, and transferred to the PACU in s table condition. There were no operative complications. I was scrubbed and present for the entire p rocedure. All sponge and needle counts were correct at the end of the case. FLUIDS AND URINE OUTPUT: Per the anesthesia record. DRAINS: None. /[id number]/MODL
[2018-04-18] MEDS: ceFAZolin 2 GM/DEXTROSE 100 ML IV SCH (21:33)
[2018-04-19] MEDS: oxyCODONE IR 5 MG TAB PO PRN ×2 (00:09→08:46)
[2018-04-19] MEDS: LR 1,000 ML IV SCH (05:09)
[2018-04-19] MEDS: ceFAZolin 2 GM/DEXTROSE 100 ML IV SCH (05:09)
[2018-04-19] MEDS: OXYCODONE/APAP 5/325 TAB PO PRN (05:19)
[2018-04-19] MEDS: HYDROmorphONE/DILAUDID 6 MG/30 ML PCA IV PRN (06:42)
--- NOTE | 2018-04-19 07:18 | PDCONSULT ---
Methods Engineer Note: NEUROSURGERY doing well, minimal back pain AAOx3 strength full x 4 limbs sensation normal dressings c/d/i POD#1 s/p T12-L2 ORIF/instrumentation for L1 chance fracture - doing well - pain well controlled at this time - PT/OT today, OK to be OOB without brace, TLSO brace for walking longer distances - d/c home today vs. tomorrow, followup in 2 weeks in clinic [facility]
[2018-04-19] MEDS: ENOXAPARIN 40 MG/0.4 ML SYR SC SCH (08:45)
[2018-04-19] MEDS: POLYETHYLENE GLYCOL 3350 17 GM PKT PO PRN (08:45)
[2018-04-19] MEDS: METHOCARBAMOL 750 MG TAB PO SCH ×3 (08:46→20:53)
[2018-04-19] MEDS: THIAMINE HCL 100 MG TAB PO SCH (08:46)
[2018-04-19] MEDS: SENNOSIDES/DOCUSATE SODIUM TAB PO SCH ×2 (08:46→20:56)
[2018-04-19] MEDS: MULTIVITAMINS 1 EACH TAB PO SCH (08:47)
--- NOTE | 2018-04-19 09:03 | TRAUMAPN ---
Trauma Progress Note Assessment/Plan: 04/19/2018 POD#1 PAD#3 Assessment: Neuro- See neurosurgery note General - Eating, no stool yet, pain medications being adjusted, VSS Lungs clear , + BS Addiction - Had a discussion regarding ETOH and nicotine abuse to improve his understanding of consequences Plan: Mobilize, adjust pain meds Subjective: "I feel better" Objective: Vital Signs Temp Pulse Resp BP Pulse Ox 37.1 C 85 14 135/72 H 91 L 04/19/18 07:57 04/19/18 07:57 04/19/18 07:57 04/19/18 07:57 04/19/18 07:57 04/18/18 04/19/18 04/20/18 05:59 05:59 05:59 Intake Total 1600 2272 Output Total 2710 Balance 1600 -438 PT 13.7 SEC (12.0-15.0) 04/17/18 07:48 INR 1.03 (0.83-1.16) 04/17/18 07:48 - C-Spine Clearance Cervical Spine Cleared: Yes Provider who Cleared Cervical Spine: JUANITA Time Cervical Spine was Cleared: 19:53 Physical Exam - Physical Exam General Appearance: WD/WN, alert, no apparent distress Respiratory: chest non-tender, lungs clear, normal breath sounds Cardiac/Chest: regular rate, rhythm Abdomen: normal bowel sounds, non-tender, soft Male Genitalia: deferred Rectal: deferred Back: Normal inspection Skin: normal color, warm/dry Extremities: normal range of motion, non-tender, normal inspection Neuro/Psych: no motor/sensory deficits, alert, normal mood/affect, oriented x 3 Time Spent w/Patient (minutes): 25
[2018-04-19] MEDS: HYDROmorphONE/DILAUDID 2 MG TAB PO PRN ×3 (12:53→20:54)
[2018-04-19] MEDS: ACETAMINOPHEN 500 MG TAB PO SCH ×2 (12:54→20:53)
--- NOTE | 2018-04-19 14:02 | POSTANESTH ---
Post Anesthetic Evaluation Cardiovascular Status: Normal, Stable Respiratory Status: Normal, Stable Level of Consciousness/Mental Status: Can Participate in Eval Pain Control: Adequate, Prn Tx Ordered Nausea/Vomiting Control: Adequate, Prn Tx Ordered Complications Possibly Related to Anesthesia: None Noted
--- NOTE | 2018-04-19 16:52 | ASMTCMCOM ---
CM Note CM Note Notes: HEALTH INSURANCE ASSESSOR/PT/OT rec home. CM attempted CAGE assessment twice this afternoon and pt was sleeping. CM to follow. Date Signed: 04/19/2018 04:51 PM Electronically Signed By:MOOSE Worley
[2018-04-20] MEDS: HYDROmorphONE/DILAUDID 2 MG TAB PO PRN ×4 (02:21→15:27)
[2018-04-20] MEDS: ACETAMINOPHEN 500 MG TAB PO SCH ×2 (05:32→15:27)
--- NOTE | 2018-04-20 07:35 | NEUSURGPN ---
Date of Surgery: 04/18/18 Post Op Day: 2 Assessment/Plan: Assessment: 22 yo male s/p T12-L2 perc screw placement for stabilization of L1 chance fracture POD #2 Plan: -continue with med/surg -Postop x-rays reviewed with Dr Rosario and are good -Brace when up and out of bed -call with any questions or concerns -optimize pain management- Ok to have 4 doses of toradol to help with postop pain control -PT/OT -ok for dc when pain is better under control -Call with any changes Subjective: Awake and alert. NAD. Eating/drinking and voiding. No f/c/n/v/d. Pt had some pain issues last night-better this am Objective: Awake, alert, sleeping when I arrived PERRJOSE CARRILLO WING X 4 Following commands BLE 5/5= Sensation intact to lt touch Incisions c/d/i-dressed -steri strips Neuro Check Frequency: per routine Urinary Catheter in Place: No - Physician Discussed Patient with : [facility] Physical Exam - Vitals, I&O, Labs I and O 04/19/18 04/20/18 04/21/18 05:59 05:59 05:59 Intake Total 2272 1350 Output Total 2710 1600 Balance -438 -250 Weight 72.575 kg Intake: Oral (ml) 545 1350 IV Intake (ml) 900 IV Infused (ml) 827 Lr 1,000 ml @ 125 mls/hr 607 IV CONT PEGGY Rx#: [id number] ceFAZolin 2 GM/DEXTROSE 220 100 ml @ 200 mls/hr IV Q8HRS PEGGY Rx#:[id number] Output: Urine (ml) 2700 1600 Urinal 2700 1600 Estimated Blood Loss (ml) 10 Other: Intake Quantity Yes Yes Sufficient Number of Voids Urinal 1 Number of Stools Urinal 2 Vital Signs Temp Pulse Resp BP Pulse Ox 36.7 C 68 17 128/64 H 95 04/20/18 04:00 04/20/18 04:00 04/20/18 04:00 04/20/18 04:00 04/20/18 04:00 ICD10 Worksheet Patient Problems: Problems Problem Status Onset Alcoholic intoxication Acute Closed T12 fracture Acute Cocaine abuse Acute Fall Acute L1 vertebral fracture Acute Lumbar back pain Acute
[2018-04-20] MEDS: ENOXAPARIN 40 MG/0.4 ML SYR SC SCH (11:12)
[2018-04-20] MEDS: MULTIVITAMINS 1 EACH TAB PO SCH (11:13)
[2018-04-20] MEDS: THIAMINE HCL 100 MG TAB PO SCH (11:13)
[2018-04-20] MEDS: METHOCARBAMOL 750 MG TAB PO SCH (11:13)
[2018-04-20] MEDS: SENNOSIDES/DOCUSATE SODIUM TAB PO SCH (11:14)
--- NOTE | 2018-04-20 12:39 | ASMTCAGE ---
CAGE Do you feel you ought to Answers: Yes cut down on your drinking or drug use? Do people annoy you by Answers: No criticizing your drinking or drug use? Do you feel guilty about Answers: Yes your drinking or drug use? Do you drink or use drugs Answers: Yes first thing in the morning ([employer] Tender)? Additional Comments Pt provided drug/alcohol resources Date Signed: 04/20/2018 12:38 PM Electronically Signed By:MOOSE Worley
[2018-04-20 12:41] VITALS: BP 116/64
--- NOTE | 2018-04-20 12:53 | TRAUMAPN ---
Trauma Progress Note Assessment/Plan: 04/19/2018 POD#1 PAD#3 Assessment: Neuro- See neurosurgery note General - Eating, no stool yet, pain medications being adjusted, VSS Lungs clear , + BS Addiction - Had a discussion regarding ETOH and nicotine abuse to improve his understanding of consequences Plan: Mobilize, adjust pain meds 04/20/2018 POD#2 PAD#4 Assessment: Pain issues noted last night have resolved. Active, moving bowels, eating, VSS Plan: will discuss discharge plans with his mother when she is available Subjective: I've moved my bowels, I'm passing gas and eating well. My pain is controlled and I've been up walking. Objective: Vital Signs Temp Pulse Resp BP Pulse Ox 36.8 C 81 16 116/64 95 04/20/18 12:00 04/20/18 12:00 04/20/18 12:00 04/20/18 12:00 04/20/18 12:00 04/19/18 04/20/18 04/21/18 05:59 05:59 05:59 Intake Total 2272 1350 Output Total 2710 1600 Balance -438 -250 PT 13.7 SEC (12.0-15.0) 04/17/18 07:48 INR 1.03 (0.83-1.16) 04/17/18 07:48 - C-Spine Clearance Cervical Spine Cleared: Yes Provider who Cleared Cervical Spine: NANCY Time Cervical Spine was Cleared: 19:53 Physical Exam - Physical Exam General Appearance: WD/WN, alert, no apparent distress Neck: non-tender, full range of motion, supple Respiratory: chest non-tender, lungs clear, normal breath sounds Cardiac/Chest: regular rate, rhythm Abdomen: normal bowel sounds, non-tender, soft Male Genitalia: deferred Rectal: deferred Back: Normal inspection, Other (dressing intact/dry) Skin: normal color, warm/dry Extremities: normal range of motion, non-tender, normal inspection Neuro/Psych: no motor/sensory deficits, alert, normal mood/affect, oriented x 3 Time Spent w/Patient (minutes): 15
--- NOTE | 2018-04-20 14:26 | ASMTLACE ---
LACE Length of stay for Answers: 4-6 days current admission Acuity / Level of Answers: Yes Care: Did the patient have an inpatient admission? # of Emergency department Answers: 1-2 visits in the last 6 months Social determinants Answers: History of substance abuse (ETOH, street drugs, prescription drugs, etc.) Score: 11 Date Signed: 04/20/2018 02:25 PM Electronically Signed By:MOOSE Worley
--- NOTE | 2018-04-20 14:34 | ASMTCMCOM ---
CM Note CM Note Notes: Provided pt's mother Vita with Al-Anon resources. Met w pt and completed CAGE, pt provided ETOH/drug resources. Pt verbalized a desire to be sober, reports his mother will be a support in this effort. Pt still processing a plan to stay sober, reports he is enrolled with [facility] and will start [facility] program soon in [place]. Pt states his mental health needs are triggering his substance use and he is hopeful he can be sober with starting the [facility] program. Pt medically stable for d/c. [facility] to transport home. Date Signed: 04/20/2018 02:33 PM Electronically Signed By:MOOSE Worley
--- NOTE | 2018-04-21 00:12 | GDS ---
Date of discharge to be determined. This is a dictated anticipation of discharge either later today or tomorrow. DISCHARGE DIAGNOSIS: L1 burst fracture. DISPOSITION: Home. Routine self-care. CONDITION ON DISCHARGE: Good. DIET RECOMMENDATION: No restrictions on diet, but I suggest he avoid constipating foods such as bananas, rice, applesauce, and cheese. Texture is regular. MEDICATIONS AT DISCHARGE: Include Tylenol 1000 mg every 8 hours by schedule for 10 days, Dilaudid 2-4 mg every 4 hours as needed for severe pain. He is to take Robaxin 750 mg 3 times a day p.r.n. spasm, and a multivitamin daily. He is to wear his back brace whenever he is out of bed. He will follow up with Dr. Perez Rosario in 2 weeks. HOSPITAL COURSE: The patient was admitted after falling off a balcony. He had been intoxicated with alcohol and cocaine. Substance abuse issues have been addressed, and he will be seeing [facility] for that aspect. He had an L1 burst fracture and underwent operative fixation. He is doing well postoperatively. He is moving his bowels. Vital signs are stable. He is eating well. Pain is under control. /[id number]/MODL MTDD
== END 2018-04-20 15:53 | disposition home or self-care (01) | DRG 460 ==
LOC: MERGE 03:46 → F3N 06:01
PROVIDERS: ADMIT Surgery; ATTEND Surgery
DX: S32.018A Other fracture of first lumbar vertebra, initial encounter for closed fracture (principal); W13.0XXA Fall from, out of or through balcony, initial encounter; Y92.038 Other place in apartment as the place of occurrence of the external cause; Y90.8 Blood alcohol level of 240 mg/100 ml or more; F10.229 Alcohol dependence with intoxication, unspecified; F14.10 Cocaine abuse, uncomplicated; R40.2412 Glasgow coma scale score 13-15, at arrival to emergency department; Z23 Encounter for immunization; Z72.0 Tobacco use
CPT/HCPCS: 80305; 92523-GN; 97116-GP; 97162-GP; 97166-GO; 97530-GO; 97535-GO; C1713; G0008; G0480; J0690; J1170; J1650; J1885; J2250; J2270; J2704; J2800; J3010; J3411; Q9967